=== PATIENT | male | born 1955 | race Caucasian/White ===

== ENCOUNTER 2017-02-09 14:49 | Emergency (ER) | payer MEDICAID ==
[2017-02-09 15:16] VITALS: RESP 18
--- NOTE | 2017-02-09 15:29 | EDPHY ---
H & P Time Seen by Provider: 02/09/17 15:17 HPI/ROS: CHIEF COMPLAINT: Intoxication HISTORY OF PRESENT ILLNESS: This is a 61-year-old male with a history of alcohol abuse who states that he has been sober for 4 years, until 2 nights ago when he drank wine with a lady friend. Since then he has been drinking on and off throughout the day in the evening. Today he apparently drank a pint of vodka and some wine and also took 2 OxyContin. He contacted paramedics when he became concerned that he might be in atrial fibrillation, of which he has a history. When they arrived he was lying on the sidewalk. He is brought to the emergency department on an [facility] hold. He has no complaints at the time of my evaluation. He states that he is feeling much better now. He would like to return home. He admits that he is unable to drink any alcohol or use any opiate medications because of his history of addiction. REVIEW OF SYSTEMS: A ten point review of systems was performed and is negative with the exception of the items mentioned in the HPI. Source: Patient, EMS - Personal History Current Tetanus/Diphtheria Vaccine: Unsure Current Tetanus Diphtheria and Acellular Pertussis (TDAP): Unsure Tetanus Vaccine Date: WITHIN 10 YEARS - Medical/Surgical History Hx Asthma: No Hx Chronic Respiratory Disease: No Hx Diabetes: No Hx Cardiac Disease: Yes Hx Renal Disease: No Hx Cirrhosis: No Hx Alcoholism: Yes Hx HIV/AIDS: No Hx Splenectomy or Spleen Trauma: No Other PMH: afib, chronic back pain and alcoholism - Social History Smoking Status: Never smoked Alcohol Use: Heavy (Recent heavy alcohol use after 4 years of sobriety) Drug Use: Other (Took 2 OxyContin today.) Additional Social History: He is not employed. - Physical Exam Exam: General Appearance: Alert. Vital signs reviewed. Blood pressure 165/112. Eyes: Pupils equal and round, no conjunctival injection, no discharge. Anicteric. ENT, Mouth: Mucous membranes are slightly dry, no oropharyngeal erythema or edema. Neck: No lymphadenopathy, supple. Respiratory: Lungs are clear to auscultation; no wheezes, rales, or rhonchi. Cardiovascular: Regular rate and rhythm; no murmur, rub, or gallop. Gastrointestinal: Abdomen is soft and nontender, no masses or organomegaly, bowel sounds normal. Skin: Warm and dry, no rashes on exposed skin, normal color. Back: Nontender to palpation over the thoracolumbar spine. Extremities: No lower extremity edema, no calf tenderness or swelling. Neurological: Alert and oriented. Moving all four extremities easily and equally. Psychiatric: Normal affect. Not agitated at the time of my interview but he was agitated on arrival. Constitutional: Initial Vital Signs Temperature (C) 36.4 C 02/09/17 14:50 Heart Rate 98 02/09/17 14:50 Respiratory Rate 18 02/09/17 14:50 Blood Pressure 165/112 H 02/09/17 14:50 O2 Sat (%) 95 02/09/17 14:50 O2 Delivery Mode Room Air Allergies/Adverse Reactions: No Known Allergies Allergy (Verified 02/13/15 13:23) Home Medications: Medication Instructions Recorded Oxycodon-Acetaminophen 7.5-500 02/09/17 Medical Decision Making ED Course/Re-evaluation: At the time of my evaluation [facility]. He is on an [facility] hold. I am recommending that he be transported to the [facility]. I do not find any evidence of injury. He does not report trauma. He was hypertensive on arrival and had a blood pressure of 120/90 at discharge. He is aware that his blood pressure readings were high. He is advised to have this followed up with his primary care physician within the next month or so. He is not in atrial auguste at the time of my evaluation. I am not concerned about his heart rhythm. He denies chest pain or shortness of breath. Differential Diagnosis: Altered mental status including but not limited to hypoglycemia, infectious process, electrolyte abnormality, head injury and intoxicants. Departure - Departure Disposition: Home, Routine, Self-Care Clinical Impression: Alcohol intoxication Qualifiers: Complication of substance-induced condition: uncomplicated Qualified Code(s): F10.920 - Alcohol use, unspecified with intoxication, uncomplicated Condition: Good Instructions: Alcohol Intoxication (ED) Referrals: [facility] [Outside] - As per Instructions AA Hotline [Outside] - As per Instructions [facility]ox 24 Hours [Outside] - As per Instructions
[2017-02-09 18:02] VITALS: BP 120/90; PULSE 86; TEMP 98.4; O2SAT 97
== END 2017-02-09 18:02 | disposition home or self-care (01) ==
LOC: EDUNIT#
DX: F10.129 Alcohol abuse with intoxication, unspecified (principal)

== ENCOUNTER 2018-06-02 19:08 | Emergency (ER) | payer MEDICAID ==
--- NOTE | 2018-06-02 19:31 | EDPHY ---
H & P Time Seen by Provider: 06/02/18 19:22 HPI/ROS: CHIEF COMPLAINT: Headache HISTORY OF PRESENT ILLNESS: The patient is a 62-year-old male who presents emergency department with left-sided headache. His pain started 6 hr ago. Patient's pain is been intermittent. He describes it is focused on the left side. It does not radiate. It does not move into his neck. He has no focal weakness or numbness. No visual change. No fevers or chills. No recent trauma or fall. Patient states he has had similar pain in that location but during the prior episodes only came for short periods of time. Patient states that he only has atrial fibrillation when he is dehydrated. He is not on any blood thinners. REVIEW OF SYSTEMS: 10 systems were reveiwed and are negative with the exception of the elements mentioned in the history of present illness. 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 Sitting in the chair. HEENT: Eyes normal to inspection, normal pharynx, no signs of dehydration. NECK: Normal, supple. RESPIRATORY: Clear to auscultation bilaterally, no rales, rhonchi or wheezing. CVS: Regular rate and rhythm, no rubs, murmurs, or gallops. ABDOMEN: Soft, nontender, nondistended, no organomegaly. BACK: Normal to inspection, no CVA tenderness. SKIN: Normal color, no rash, warm, dry. No pallor. EXTREMITIES: No pedal edema, no calf tenderness, no Homans sign or cords, no joint swelling. NEURO/PSYCH: Higher functions: Alert and Oriented x3. Normal speech and cognition. Normal mood and affect. Cranial nerves: Normal as tested. Cerebellar: Normal as tested. Good finger to nose, good [id number], normal gait. Peripheral exam: Normal motor exam. Normal sensation. Normal reflexes. Constitutional: Initial Vital Signs Temperature (C) 36.5 C 06/02/18 19:13 Heart Rate 65 06/02/18 19:13 Respiratory Rate 18 06/02/18 19:13 Blood Pressure 136/79 H 06/02/18 19:13 O2 Sat (%) 97 06/02/18 19:13 O2 Delivery Mode Room Air Allergies/Adverse Reactions: No Known Allergies Allergy (Verified 06/02/18 19:15) Home Medications: Medication Instructions Recorded Oxycodon-Acetaminophen 7.5-500 02/09/17 oxyCODONE/APAP 5/325 [Percocet 1 - 2 tab PO Q4PRN PRN #11 tab 06/02/18 5/325 (*)] Medical Decision Making - Diagnostics Imaging Results: Imaging Impressions Head CT 06/02/18 20:12 Impression: 1. No acute intracranial process. 2. The lens in the right thigh appears calcified and is located within the vitreous body, presumably chronic. 3. Favor old superior orbital wall fracture on the left. Findings and recommendations discussed with ROBIN HOPSON at 2049 hour, . ED Course/Re-evaluation: In the emergency department I discussed possible etiologies with the patient. I answered all his questions. The patient refused IV placement. He did not want pain medication. He did consent to CT imaging. Head CT: Please refer the dictated report. No acute disease noted. I discussed the results with the patient. I answered all his questions. I discussed limitations of CT imaging. This time patient does not want any invasive procedures. He does not want a lumbar puncture. Patient was given a prescription of pain medication. He will return with worsening symptoms. He is given warnings prior to leaving. Differential Diagnosis: My differential includes but is not limited to subarachnoid hemorrhage, subdural hematoma, epidural hematoma, ischemic CVA, hemorrhagic CVA, dissection , aneurysm, migraine, tension headache Departure - Departure Disposition: Home, Routine, Self-Care Clinical Impression: Headache Qualifiers: Headache type: unspecified Headache chronicity pattern: acute headache Intractability: intractable Qualified Code(s): R51 - Headache Condition: Good Instructions: Acute Headache (ED) Additional Instructions: Return with increasing headache, weakness, numbness, visual change, fever, neck stiffness or any other concerns. Referrals: Paulina Conti MD [Primary Care Provider] - 1-2 days without fail Prescriptions: oxyCODONE/APAP 5/325 [Percocet 5/325 (*)] 1 - 2 tab PO Q4PRN PRN #11 tab PRN Reason: For Moderate To Severe Pain
[2018-06-02] MEDS ORDERED: OXYCODONE/APAP 5/325MG PREPACK#4 BTL TAKEHOME ONE (20:57)
[2018-06-02 21:06] VITALS: BP 114/75
== END 2018-06-02 21:05 | disposition home or self-care (01) ==
DX: R51 Headache (principal)